=== PATIENT | male | born 1985 | race Caucasian/White ===

== ENCOUNTER → 2016-06-07 | Outpatient (CLI) | payer OTHER ==
[~2016-06-07] MED LIST: PRT/20 PO
== END | disposition home or self-care (01) ==
LOC: C.CPL 17:56
PROVIDERS: ATTEND Psychiatry & Neurology Psychiatry
DX: F34.89 Other specified persistent mood disorders (principal); Z51.81 Encounter for therapeutic drug level monitoring; Z79.899 Other long term (current) drug therapy

== ENCOUNTER → 2017-10-12 | Outpatient (CLI) | payer OTHER ==
--- NOTE | 2017-10-13 06:27 | SPLIT NIGHT TECHNICIAN REPORT ---
[facility] Split Night Polysomnogram - Powder Loader Report Study date: 10/12/2017 Referring Physician: FERMÍN Green Name: EMIGDIO LEEMAHOGANY Morgan Powder Loader: SHYAM Lott. Date of : 1985 Height: 32 years, Height 6' 0" Sex: Male Weight: 209 lbs Age: 32 BMI: Medications: 28.34 Adderall 20 mg, Lamotrigine 100 mg, Levothyroxine 75 MCG, Mirtazapine 45 mg, Pantoprazole 20 mg, Seroquel 300 mg Patient History 32 yr. old male here for a modified split night sleep study if AHI >15. 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 ESS 07/26. Parameters Monitored NPSG: E1-M2, E2-M1, Fp1-M2, Fp2-M1, F3-M2, F4-M2, F4-M1, C3-M2, C4-M2, C4-M1, O1-M2, O2-M2, O2-M1, T3-M2, T4-M1, P3-M2, P4-M1, CHIN1, CHIN2, HR, EKG, Legs, PFLOW, SNOR, FLOW, CFLOW, Tidal Volume, THOR, ABDO, SpO2, PLTH, CPRESS, ETCO2 Wave, ETCO2, pH SLEEP SUMMARY DATA DIAGNOSTIC TREATMENT Lights Out: 10:23:26 PM 1:14:56 AM Lights On: 1:09:56 AM 5:54:26 AM Total Recording Time (TRT): 166.5 min. 280.0 min. Total Sleep Time (TST): 121.5 min. 265.0 min. NREM Time: 91.0 min. 193.5 min. REM Time: 30.5 min. 71.5 min. Sleep Period Time (SPT): 130.5 min. 277.0 min. Sleep Efficiency (SE): 73 % 95 % Sleep Latency: 36.0 min. 2.5 min. Arousal Index: 23.2 15.6 PAP Treatment Levels: 5, 6, 7 * Optimal Pressure(s) SLEEP STAGING DATA DIAGNOSTIC TREATMENT Duration (min) TST % Duration (min) TST % Stage Wake: 45.0 min. -- 14.5 min. -- WASO: 9.0 min. -- 12.0 min. -- NREM: 91.0 min. 75 % 193.5 min. 73 % Stage N1: 17.5 min. 14 % 25.0 min. 9 % Stage N2: 64.5 min. 53 % 168.5 min. 64 % Stage N3: 9.0 min. 7 % 0.0 min. 0 % REM: 30.5 min. 25 % 71.5 min. 27 % POSITIONAL DATA Event Count Index Event Count Index Supine: 81 68 5 3.2 Supine NREM: 41 59.5 5 5.5 Supine REM: 40 79 0 0 Non-Supine: 1 1.2 2 0.7 Non-Supine NREM: 1 1.2 1 0.4 Non-Supine REM: N/A N/A 1 1.9 AROUSAL SUMMARY DATA: Event Count Index Event Count Index Apnea Arousals: 14 30.6 0 0.2 Hypopnea Arousals: 2 1.0 2 0.5 Snore Arousals: 5 2.5 3 0.7 PLM Arousals: 15 7.4 44 10.0 Non-Specific Arousals: 13 6.4 4 0.9 Total Arousals: 47 23.2 69 15.6 MYOCLONUS (PLM) Event Count Index Event Count Index PLM: 52 25.7 215 48.7 PLM AROUSAL: 15 7.4 44 10.0 PLM W/O AROUSAL 52 25.7 171 38.7 PLM W/RESP EVENT 0 0.0 0 0.0 MYOCLONUS (PLM) Event Count Index Event Count Index LM: 0 21.7 52 11.8 LM AROUSAL: 0 0.0 16 3.6 LM W/O AROUSAL LM W/RESP EVENT LM NON SPECIFIC 59 29.1 204 46.2 HEART RATE DATA DIAGNOSTIC TREATMENT Sleep (bpm): 66 56 REM (bpm): 93 96 NREM (bpm): 93 95 Tachycardia Count: 0 0 Tachycardia Duration: 0.00 0 Bradycardia Count: 0 0 Bradycardia Duration: 0.00 0 DIAGNOSTIC PORTION TREATMENT PORTION RESPIRATORY DATA Event Count Index Event Count Index AHI: -- 40.5 -- 1.6 RDI: -- 40.5 -- 2 Obstructive Apnea: 62 30.6 1 0.2 Central Apnea: 0 0.0 0 0.0 Mixed Apnea: 0 0.0 0 0.0 Hypopnea: 20 9.9 6 1.4 RERA: 0 0.0 0 0.0 Total Apneas: 62 30.6 1 0.2 RESPIRATORY DATA REM NREM SLEEP REM NREM SLEEP Supine Position: Obstructive Apneas: 35 27 62 0 1 1 Central Apneas: 0 0 0 0 0 0 Mixed Apneas: 0 0 0 0 0 0 Hypopneas: 5 14 19 0 4 4 RERA 0 0 0 0 0 0 Total Supine Events: 40 41 81 0 5 5 Supine AHI: 79 59.5 68 0 5.5 3.2 Supine RDI: 78.7 59.5 67.6 0.0 5.5 3.2 REM NREM SLEEP REM NREM SLEEP Non-Supine Position: Obstructive Apneas: N/A 0 0 0 0 0 Central Apneas: N/A 0 0 0 0 0 Mixed Apneas: N/A 0 0 0 0 0 Hypopneas: N/A 1 1 1 1 2 RERA N/A 0 0 0 0 0 Total Supine Events: N/A 1 1 1 1 2 Supine AHI: N/A 1.2 1.2 1.9 0.4 0.7 Supine RDI: N/A 1.2 1.2 1.9 0.4 0.7 OXYGEN DESTAURATION DATA: Event Count Index Event Count Index REM Desaturations: 36 70.8 2 1.7 NREM Desaturations: 44 29.0 9 2.8 SNORE DATA DIAGNOSTIC TREATMENT Snore Time: 14.2 1:17:26 AM Snore TST%: 5 5 Snore Arousal Count: 5 3 Snore Arousal Index: 2.5 0.7 Desaturation Event Summary: Minimum %SpO2 Event Count Mean/Min/Max Duration(sec.) Desaturation Index % Time In Bed > 90 93 23.2 / 8.3 / 54.3 13.8 92.1 86 - 90 3 9.1 / 4.5 / 13.8 6.3 6.5 81 - 85 0 N/A 0.0 1.2 76 - 80 0 N/A 0.0 0.2 71 - 75 0 N/A 0.0 0.0 66 - 70 0 N/A 0.0 0.0 61 - 65 0 N/A 0.0 0.0 56 - 60 0 N/A 0.0 0.0 51 - 55 0 N/A 0.0 0.0 < 50 0 N/A 0.0 0.0 OXYGEN SATURATION DATA DIAGNOSTIC TREATMENT SpO2 Mean Sleep: 93 % 96 % SpO2 Mean REM: 93 % 96 % SpO2 Mean NREM: 93 % 95 % SpO2 Minimum Sleep: 79 % 83 % SpO2 Minimum REM: 83 % 94 % SpO2 Minimum NREM: 79 % 83 % Time Below 90% (TST): 15.4 9.2 Time Below 88% (TST): 8.1 4.0 Total REM NREM Awake <50% 0.0 min. 0.0 min. 0.0 min. 0.0 min. 51 - 60% 0.0 min. 0.0 min. 0.0 min. 0.0 min. 61 - 70% 0.0 min. 0.0 min. 0.0 min. 0.0 min. 71 - 80% 0.7 min. 0.0 min. 0.3 min. 0.4 min. 81 - 90% 33.7 min. 6.1 min. 25.2 min. 2.5 min. 91 - 100% 403.6 min. 95.7 min. 254.2 min. 53.6 min. Average 95 96 95 94 Minimum SpO2 78 83 79 78 Desaturation Event Index 12.7 22.4 11.2 3.1 # Desat. Events below 89% 52 14 37 1 Time(%) with Saturation below 89% 4.8 0.5 3.6 0.6 Time(min.) with Saturation below 89% 20.8 2.4 15.8 2.7 Recording Powder Loader Comments: Mr. Lee slept in the right, left, and positions. No cardiac arrhythmia. Frequent PLMs/ Major body movements noted. No bruxism noted. Snoring was noted and scored as a 4 on a scale of 0 through 5. (0=no snoring, 5=snoring loud enough to be heard through a closed door or down the boles way) At 1:14 am Mr. Lee met specific Split-Night criteria during the diagnostic portion of this study. CPAP was initiated at +5 CMH2O and up-titrated to a level of +7 CMH2O Cflex 1. An [place], was used during titration. Mr. Lee did not wake to use the restroom during the night. Mr. Lee stated, that was a normal night. The final report will be interpreted and signed by a sleep physician. The completed physician report will then be placed in the patient medical record. Therapy Event: Therapy (cm H20) 0 5 6 7 Total Time at Pressure (min.) 166.5 190.3 28.9 59.7 TST at Pressure (min.) 121.5 177.8 28.9 58.2 # Periods 1 1 1 1 Sleep Onset (min.) 36.0 2.5 0.0 0.0 REM Onset (min.) 112.5 89.5 N/A 14.2 Sleep Efficiency % 73 93 100 97 Wakefulness (%) 27.0 6.6 0.0 2.5 Wakefulness (min.) 45.0 12.5 0.0 1.5 NREM 1 (%) 10.5 9.2 12.1 6.7 NREM 1 (min.) 17.5 17.5 3.5 4.0 NREM 2 (%) 38.7 67.4 87.9 24.7 NREM 2 (min.) 64.5 128.3 25.4 14.7 NREM 3 (%) 5.4 0.0 0.0 0.0 NREM 3 (min.) 9.0 0.0 0.0 0.0 REM (%) 18.3 16.8 0.0 66.1 REM (min.) 30.5 32.0 0.0 39.5 # Arousals 47 46 11 12 Arousal Index 23.2 15.5 22.8 12.4 # Snore 610 207 43 45 Snore Index 301.2 69.8 89.2 46.4 AHI 40.5 1.3 6.2 0.0 AHI Supine 67.6 17.6 6.2 0.0 AHI Non-Supine 1.2 0.7 N/A N/A NREM AHI 27.7 1.2 6.2 0.0 REM AHI 78.7 1.9 N/A 0.0 RDI 40.5 1.3 6.2 0.0 # Obstructive 62 0 1 0 # Central Ap 0 0 0 0 # Mixed 0 0 0 0 # Hypopneas 20 4 2 0 RERAS 0 0 0 0 Total Respiratory Events 82 4 3 0 Time Below SpO2 89.00% (min.) 11.8 2.8 3.5 0.0 Mean NREM SpO2 (%) 93 95 93 97 Mean REM SpO2 (%) 93 96 N/A 97 Mean Sleep SpO2 (%) 93 96 93 97 Min NREM SpO2 (%) 79 87 83 94 Min REM SpO2 (%) 83 94 N/A 94 Position Supine (min.) 71.8 6.8 28.9 58.2 Position Non-supine (min.) 49.7 171.0 0.0 0.0 LM Index Sleep 47.4 70.2 51.8 35.0 LM Index NREM 48.1 77.4 51.8 54.4 LM Index REM 45.2 37.5 N/A 25.8 Mean Heart Rate (bpm) 66 59 51 52 Min Heart Rate (bpm) 57 48 44 46
== END | disposition home or self-care (01) ==
LOC: C.NEUR 21:00
PROVIDERS: ATTEND Nurse Practitioner Family
DX: G47.33 Obstructive sleep apnea (adult) (pediatric) (principal)